=== PATIENT | male | born 1950 | race Caucasian/White ===

== ENCOUNTER 2020-12-04 13:13 | Emergency (ER) | payer MEDICARE, OTHER ==
[~2020-12-04] VITALS: Ht 195.6 cm; Wt 85.9 kg
[2020-12-04] MEDS ORDERED: SODIUM CHLORIDE 0.9% 1000ML 1,000 ML IV STA (13:34)
[2020-12-04] MEDS ORDERED: CEFTRIAXONE SOD 1 GM VIAL IV ONE (13:45)
[2020-12-04] MEDS ORDERED: ONDANSETRON HCL INJ 2MG/ML 2ML 2 MG/ML VIAL IV ONE (13:45)
[2020-12-04] MEDS ORDERED: DEXAMETHASONE SOD PHOS 10 MG/1 ML VIAL IV ONE (13:45)
[2020-12-04] MEDS ORDERED: KETOROLAC TROMETHAMINE 30 MG/ML VIAL IV ONE (13:45)
[2020-12-04] MEDS ORDERED: IBUPROFEN IB200 MG PO (14:07)
[2020-12-04] MEDS ORDERED: PROBIOTIC & AC1 EACH PO (14:07)
[2020-12-04] MEDS ORDERED: AUGMENTIN 875-1 EACH PO (14:07)
[2020-12-04] MEDS ORDERED: ACETAMINOPHEN500 MG PO (14:07)
[2020-12-04] MEDS ORDERED: KETOROLAC TROMETHAMINE 30 MG/ML VIAL ONE (14:19)
[2020-12-04] MEDS ORDERED: DEXAMETHASONE SOD PHOS INJ 4 MG/ML VIAL ONE (14:19)
[2020-12-04] MEDS ORDERED: ONDANSETRON HCL INJ 2MG/ML 2ML 2 MG/ML VIAL ONE (14:19)
[2020-12-04] MEDS ORDERED: CEFTRIAXONE SOD 1 GM 50 ML IV ONE (14:20)
[2020-12-04] MEDS ORDERED: SODIUM CHLORIDE 0.9% 1000ML 1,000 ML ONE (14:20)
[2020-12-04] MEDS ORDERED: CARVEDILOL3.125 MG PO (15:07)
[2020-12-04 15:14] VITALS: BP 153/82
== END 2020-12-04 15:15 | disposition home or self-care (01) ==
LOC: FSED 13:36
DX: U07.1 COVID-19 (principal); J18.9 Pneumonia, unspecified organism; R05 Cough; R06.02 Shortness of breath; I10 Essential (primary) hypertension; M54.9 Dorsalgia, unspecified; G89.29 Other chronic pain; Z85.46 Personal history of malignant neoplasm of prostate
CPT/HCPCS: 71045; 80053; 81003; 85025; 87086; 87186; 96374; 96375; 99284; J0696; J1100 ×2; J1885; J2405; J7030